=== PATIENT | female | born 1975 ===

== ENCOUNTER 2020-06-15 05:50 | Day surgery (SDC) | payer OTHER | END 2020-06-15 11:50 | disposition home or self-care (01) | LOC: AMB-ENDOS 05:50 | PROVIDERS: ATTEND Surgery | DX: K62.1 Rectal polyp (principal); K64.8 Other hemorrhoids; Z12.11 Encounter for screening for malignant neoplasm of colon ==

== ENCOUNTER 2020-10-05 15:34 | Outpatient (CLI) | payer OTHER | END 2020-10-05 18:00 | disposition home or self-care (01) | LOC: LAB 15:34 | PROVIDERS: ATTEND Obstetrics & Gynecology | DX: Z03.818 Encounter for observation for suspected exposure to other biological agents ruled out (principal); Z20.828 Contact with and (suspected) exposure to other viral communicable diseases ==

== ENCOUNTER 2020-10-06 11:00 | Day surgery (SDC) | payer OTHER | END 2020-10-06 17:20 | disposition home or self-care (01) | LOC: CIR.AMB 11:00 | PROVIDERS: ATTEND Obstetrics & Gynecology | DX: N84.0 Polyp of corpus uteri (principal); D25.0 Submucous leiomyoma of uterus; Z20.822 Contact with and (suspected) exposure to COVID-19 ==

== ENCOUNTER 2021-12-21 06:56 | Day surgery (SDC) | payer OTHER ==
[2021-12-21] MEDS ORDERED: NAPROXEN SODIU550 MG PO (14:04)
[2021-12-21] MEDS ORDERED: ACETAMINOPHEN-1 EAC2 PO (14:04)
[2021-12-21] MEDS ORDERED: COLACE100 MG PO (14:05)
== END 2021-12-21 20:05 | disposition home or self-care (01) ==
LOC: CIR.AMB 06:56
PROVIDERS: ATTEND Obstetrics & Gynecology
DX: D25.0 Submucous leiomyoma of uterus (principal); Z87.891 Personal history of nicotine dependence; Z20.822 Contact with and (suspected) exposure to COVID-19